=== PATIENT | male | born 1990 | race Caucasian/White ===

== ENCOUNTER 2018-03-12 15:47 | Emergency (ER) | payer MEDICAID ==
[~2018-03-12] VITALS: Ht 180.3 cm; Wt 82.6 kg
[~2018-03-12 15:47] MED LIST: XAN1 PO
[2018-03-12 15:56] VITALS: Ht 180.3 cm; Wt 82.6 kg
[2018-03-12 16:44] LABS: microscopic required? NO
[2018-03-12 16:50] LABS: BASOPHIL % 0.7 % (0-2); PLATELET COUNT 238 x10^3mcL (130-400); RED CELL DISTRIBUTION WIDTH 13.2 % (11.5-14.5)
[2018-03-12 16:51] LABS: UA SPECIFIC GRAVITY 1.015 (1.005-1.035); urine erythrocyte NEGATIVE (NEGATIVE)
[2018-03-12 16:56] LABS: CALCIUM 8.3 mg/dL (8.5-10.1); CARBON DIOXIDE 28.4 mmol/L (21-32); CHLORIDE SERUM 108 mmol/L (98-107); CREATININE SERUM 0.9 mg/dL (0.7-1.3); GFR1 > 60 mL/min; GLUCOSE SERUM 106 mg/dL (74-106); SODIUM SERUM 147 mmol/L (136-145)
[2018-03-12 16:59] LABS: AMPHETAMINE QUAL UR NONE DETECTED (See below)
[2018-03-12 17:03] LABS: ALBUMIN 3.9 g/dL (3.4-5.0); ALKALINE PHOSPHATASE 52 U/L (46-116); ALT/SGPT 16 U/L (16-63); AST/SGOT 10 U/L (15-37); BILIRUBIN TOTAL 0.55 mg/dL (0.20-1.00); TOTAL PROTEIN, SERUM 7.3 g/dL (6.4-8.2)
[2018-03-12] MEDS ORDERED: MIN2 PO (20:05)
[2018-03-12] MEDS ORDERED: DEPAKOTE500 MG PO (20:07)
[2018-03-12] MEDS ORDERED: BUSPIRONE HCL30 MG PO (20:08)
[2018-03-13 14:07] VITALS: BP 119/63
== END 2018-03-13 14:07 ==
LOC: ED 15:47
PROVIDERS: Emergency Medicine
DX: F41.9 Anxiety disorder, unspecified (principal); F32.9 Major depressive disorder, single episode, unspecified; F43.10 Post-traumatic stress disorder, unspecified; F12.980 Cannabis use, unspecified with anxiety disorder; F17.210 Nicotine dependence, cigarettes, uncomplicated; Z71.6 Tobacco abuse counseling; Z88.8 Allergy status to other drugs, medicaments and biological substances; X58.XXXA Exposure to other specified factors, initial encounter; Y93.89 Activity, other specified; Y92.89 Other specified places as the place of occurrence of the external cause; Y99.8 Other external cause status
CPT/HCPCS: 36415; 99406; G0480

== ENCOUNTER 2018-12-05 11:12 | Inpatient (IN) | payer MEDICAID ==
[~2018-12-05] VITALS: Ht 185.4 cm; Wt 70.3 kg
[~2018-12-05 11:12] MED LIST changes: +BUSPIRONE HCL30 MG PO; +DEPAKOTE500 MG PO; +MIN2 PO
[2018-12-05 11:17] VITALS: Ht 185.4 cm; Wt 70.3 kg
[2018-12-05 12:01] LABS: BASOPHIL % 0.4 % (0-2); PLATELET COUNT 257 x10^3mcL (130-400)
[2018-12-05 12:10] LABS: CALCIUM 8.6 mg/dL (8.5-10.1); CARBON DIOXIDE 21.8 mmol/L (21-32); CHLORIDE SERUM 107 mmol/L (98-107); CREATININE SERUM 0.8 mg/dL (0.7-1.3); GFR1 > 60 mL/min; GLUCOSE SERUM 101 mg/dL (74-106); SODIUM SERUM 142 mmol/L (136-145)
[2018-12-05 12:15] LABS: ALKALINE PHOSPHATASE 50 U/L (46-116); ALT/SGPT 16 U/L (16-63); AST/SGOT 11 U/L (15-37); BILIRUBIN TOTAL 0.79 mg/dL (0.20-1.00); TOTAL PROTEIN, SERUM 7.2 g/dL (6.4-8.2)
[2018-12-05 12:16] LABS: AMPHETAMINE QUAL UR NONE DETECTED (See below)
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
--- NOTE | 2018-12-05 12:45 | NUR ---
PT DENIES HI, VISUAL OR AUDIAL HALLUCINATIONS.
--- NOTE | 2018-12-05 12:58 | NUR ---
PT COMPLAINS OF DYSURIA, DR CONTE NOTIFIED. PT IN BATHROOM TO COLLECT URINE SPECIMEN. WAIITTERA FOR ORDERS.
--- NOTE | 2018-12-05 13:45 | NUR ---
PT CURRENTLY SPEAKING WITH [employer].
--- NOTE | 2018-12-05 13:54 | NUR ---
SPOKE TO PSYCHIATRIST DR. GARIBAY. AND IS REQUESTING HOSPITILAZATION FOR A 5150 HOLD. ALSO STATES THAT PT IS WILLING TO GO VOLUNTARILY. CN NOTIFIED, WILL CALL LELA RAZA TO COME AND PUT PT ON HOLD.
--- NOTE | 2018-12-05 14:29 | NUR ---
SANDWICH GIVEN AND ORAL FLUIDS, TOLEARETED WELL.
--- NOTE | 2018-12-05 14:32 | NUR ---
I WAS CALLED TO THE ED TO WRITE A 5150 HOLD FOR THIS PATIENT. I WAS TOLD BY THE Librado MURPHY THAT THE TELEPSYCH MD HAS SUGGESTED THE HOLD AFTER HIS EVALUATION. THE RN NOTES ALSO STATE SUICIDAT IDEATION, NO PLAN, 5150 ADVISED. I SPOKE TO THE PTIENT AT THE [facility]. HE TELLS ME HE LIVES AT [address]. HIS UNKLE (QUYNH WALSH) AND HIS MOTHER, LOVAL TO [facility]. HE STATES HE HAS BEEN ON MANY 5150 HOLDS AND UNDERSTANDS THEM.
--- NOTE | 2018-12-05 14:47 | NUR ---
PT LAYING ON ABDOMEN, IN NAD. EYES CLOSED, AROUSABLE TO VERBAL STIMULI,
--- NOTE | 2018-12-05 15:24 | NUR ---
Received packet via fax. Will begin looking for placement. Will contact with any placement updates
--- NOTE | 2018-12-05 15:49 | NUR ---
Contacted the following facilities regarding placement: [facility]: s/w Liseth, no beds available at this time. Faxed for waitlist. [facility]: s/w Jerson, no beds available at this time. [facility]: Can only admit medi-renate pts when they are under 20 y/o. [facility]: s/w Corrine, states no beds or projected openings, try again tomorrow. [facility]: s/w Ria, states no beds available. [facility]: s/w Amy, states open beds, packet faxed for review. [facility]: s/w Emilie, states no beds. [facility]: No answer, left voice message. Will continue to look for placement. Will contact with any updates.
--- NOTE | 2018-12-05 15:57 | NUR ---
NO ACUTE CHANGES IN CONDITION, PT WITH EYES CLOSED, IN NAD.
--- NOTE | 2018-12-05 18:24 | NUR ---
EMT AT BEDSIDE TO COLLECT ALL CLOTHES AND BELOGNIGS.
--- NOTE | 2018-12-05 18:35 | NUR ---
REMVOED PTS CLOTHES AND BELONGINGS PLACED IN BAG AND PLACED IN SECURED CABINET WITH PT LABEL ON IT.
--- NOTE | 2018-12-05 19:35 | NUR ---
PT LAYING COMFORTABLY IN GURNEY, AWAKE AND ALERT, CALM AND COOPERATIVE, RESP E/U, REPORTS 10/10 HEADACHE PAIN. MD MADE AWARE. PT CONTINUES TO BE IN DIRECT SIGHT OF NURSE'S STATION.
--- NOTE | 2018-12-05 19:40 | NUR ---
CALLED OVER TO PT ROOM, PT STATED HE HAD TOLD THE PREVIOUS NURSE THAT HE WAS HAVING A HEADACHE. PT ALSO INFORMED ME THAT IN ORDER TO HELP WITH HIS HEADACHE, HE WENT TO THE RESTROOM AND "BANGED MY HEAD AGAINST THE WALL AND I DON'T WANT TO HURT MY SELF ANYMORE". EXPLAINED TO THE PT THAT HE NEEDS TO CALL FOR ASSISTANCE WHEN HE NEEDS TO USE THE RESTROOM AND THAT HE CANNOT INJURE HIMSELF. PT GAVE UNDERSTANDING AND AGREED THAT HE WOULD NO LONGER DO ANYTHING TO HURT HIMSELF WHILE IN THE ED. INFORMED PT THAT TYLENOL HAD BEEN ORDER FOR HIM. THEN ASKED PT IF HE HAD BEEN PROVIDED WITH DINNER, PT STATED HE DID NOT GET A DINNER TRAY AND OFFERED HIM SANDWICH. PT AGREED TO SANDWICH AND TYLENOL FOR HEADACHE. PT A&OX4 AT THIS TIME, STUTTERS IN HIS SPEECH, REMAINS COOPERATIVE AT THIS TIME, BUT APPEARS UNEASY AND REPOSITIONG OFTEN TO COMFORT. EDUCATED PT TO USE CALL LIGHT IF HE NEEDED TO USE RESTROOM. PT GAVE UNDERSTANDING.
--- NOTE | 2018-12-05 19:46 | NUR ---
PT MEDICATED PER ORDER. SEE EMAR. PT ALSO PROVIDED WITH SANDWICH AND JUICE.
--- NOTE | 2018-12-05 20:28 | NUR ---
PT REPORTS PAIN IMPROVED TO 2/10 S/P TYLENOL ADMINISTRATION. PT IS AWAKE AND ALERT, RESP E/U. PT PROVIDED WITH JELLO AND CRACKERS PER HIS REQUEST. PT SITTING UP IN HIGH FOWLERS. PT REMAINS CALM AND COOPERATIVE. ASKED PT IF HE CURRENTLY HAD ANY SI, STATES "YES." ASKED HIM IF HE HAD A PLAN, PT STATED "I JUST DON'T WANT TO THINK ABOUT IT."
--- NOTE | 2018-12-05 20:40 | NUR ---
PATIENT IS BACK IN BED, HE HAD GONE TO THE BATHROOM. NO COMPLAINT OF PAIN AT THIS TIME. PATIENT REQUESTED A BLANKET IF THE AMBULANCE IS NOT COMING FOR HIM NON. PATIENT WAS GIVEN BLANKET ANC COMFORT ENSURES. PATIENT IS WATCHING TV.
--- NOTE | 2018-12-05 21:34 | NUR ---
PATIENT AMBULATED TO THE BATHROOM.
--- NOTE | 2018-12-06 00:30 | NUR ---
PATIENT AMBULATED TO THE BATHROOM. REQUESTED SANDWICH AND JUICE ON RETURN TO BED. SANDWICH AND JUICE GIVEN.
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
--- NOTE | 2018-12-06 01:20 | NUR ---
AT PT BEDSIDE. PT REQUESTED MEDICATION AGAIN FOR INFLAMMATION. PT IS CALM AND COOPERATIVE AT THIS TIME, APOLOGETIC AND STATING HE NORMALLY TAKES NAPROXEN AND WOULD APPRECIATE IF HE GOT THE MEDICATION. AWAITING FURTHER ORDERS. PT CONTINUED TO APOLOGIZE FOR HIS BEHAVIOR. INFORMED PT THAT I APPRECIATE THE CLEARER COMMUNICATION AND THAT WE ARE TRYING TO HELP HIM AND WORK WITH HIM. PT GAVE UNDERSTANDING AND RETURNED TO POSITION OF COMFORT.
--- NOTE | 2018-12-06 01:39 | NUR ---
PT MEDICATED PER ORDER. SEE EMAR.
--- NOTE | 2018-12-06 03:02 | NUR ---
PATIENT GOT UP TO THE BATHROOM. AND BACK TO BED.
--- NOTE | 2018-12-06 05:03 | NUR ---
PATIENT WENT TO TE BATHROOM.
--- NOTE | 2018-12-06 05:15 | NUR ---
PATIENT RETURN FROM THE BATHROOM, VITAL SIGNS RE-CHECK.
--- NOTE | 2018-12-06 06:32 | NUR ---
PATIENT IS AWAKE, AND WATCHING TV. NO DISTRESS.
--- NOTE | 2018-12-06 07:18 | NUR ---
REPORT RECEIVED FROM JACQUIE DEGROOT TO ASSUME CARE OF PT. PT AAOX4, CALM/COOPERATIVE, RESP E/U, AMBULATED TO RESTROOM WITH STEADY GAIT, NO ACUTE DISTRESS NOTED AT THIS TIME.
--- NOTE | 2018-12-06 07:39 | NUR ---
PT AMBULATED TO RESTROOM WITH STEADY GAIT.
--- NOTE | 2018-12-06 08:27 | NUR ---
PT AMBULATED TO RESTROOM WITH STEADY GAIT. PT STATED THE FLOOR IS TOO SLIPPERY FOR HIM. PT GIVEN NON-SLIP SOCKS TO USE.
--- NOTE | 2018-12-06 09:35 | NUR ---
PT AMBULATED TO RESTROOM WITH STEADY GAIT.
--- NOTE | 2018-12-06 11:15 | NUR ---
PT UP ASKING NURSES FOR PENCIL AND PAPER. PT WAS TOLD BY ME WE COULD NOT GIVE HIM A PENCIL TO USE BUT I WILL WRITE SOMETHING DOWN FOR HIM IF HE NEEDED. PT LAUGHED AND STATED "IT'S OK I DON'T WANT TO OFFEND YOU WITH MY RAP LYRICS". PT CALM/COOPERATIVE, RESP E/U, AAOX4, NO ACUTE DISTRESS NOTED AT THIS TIME.
--- NOTE | 2018-12-06 14:16 | NUR ---
CALLED TO PT RM, PT STS HE IS FEELING ANXIOUS AND WOULD LIKE SOME MEDICATION FOR THAT. DR. MEJIA MADE AWARE. PT CALM/COOPERATIVE, RESP E/U, NO ACUTE DISTRESS NOTED AT THIS TIME.
--- NOTE | 2018-12-06 14:27 | NUR ---
PT REQUESTED TOOTH BRUSH AND TOOTH PASTE. PT GIVEN ITEMS AND TOLD HE HAS TO BRUSH TEETH IN ROOM WITHIN VIEW OF NURSES STATION. PT WAS COOPERATIVE.
--- NOTE | 2018-12-06 17:20 | NUR ---
PT REEVALUATED FOR SI. PT STS HE NO LONGER WANTS TO HARM HIMSELF. PT STATED "I WANT TO GET HELP MANAGING MY EMOTIONS". PT AAOX4, RESP E/U, CALM/COOPERATIVE, NO ACUTE DISTRESS NOTED AT THIS TIME. PT WITH IN VIEW OF NURSES STATION.
[2018-12-06 18:44] LABS: CHOLESTEROL/HDL RATIO 2.9
--- NOTE | 2018-12-06 19:13 | NUR ---
REPORT GIVEN TO JACQUIE DEGROOT TO ASSUME CARE OF PT.
--- NOTE | 2018-12-06 20:31 | NUR ---
PATIENT IS ADMITTED.REPORT WAS GIVEN TO ESTELLA. PATIENT TRANSPORTED TO ROOM 244B.
[2018-12-06 20:50] VITALS: BP 133/89
--- NOTE | 2018-12-06 20:54 | NUR ---
RECEIVED PT FROM ED VIA TAMIKO. ORIENTED PT TO ROOM AND SURROUNDINGS. IV NOTED TO LAC PATENT AND INTACT. INSTRUCTED PT ON THE USE OF CALL LIGHT FOR ASSISTANCE. ENDORSED PT TO PRIMARY SHANITA SORIA
[2018-12-06 21:02] VITALS: BP 133/89
--- NOTE | 2018-12-06 21:02 | NUR ---
PT REQUESTING TO SHOWER, PAGED DR. SCHWARZ.
--- NOTE | 2018-12-06 23:50 | NUR ---
PT RESTING IN BED. BREATHING E/U. NO S/S ACUTE DISTRESS. 1:1 SITTER AT BEDSIDE TO MAINTAIN SAFETY. CALL LIGHT WITHIN REACH. WILL CONTINUE TO MONITOR.
--- NOTE | 2018-12-07 02:02 | NUR ---
PT C/O "02/19 HEADACHE PAIN AND 11/19 BODY PAIN", NO PRN PAIN MEDS AVAILABLE AT THIS TIME, PAGED DR. SCHWARZ. WAITING FOR CALLBACK.
--- NOTE | 2018-12-07 02:09 | NUR ---
SPOKE TO DR. RODRIGUEZ REGARDING PT REQUEST TO SHOWER AND PAIN MEDICATION. WILL WAIT FOR NEW ORDERS.
--- NOTE | 2018-12-07 02:38 | NUR ---
PT STATED HE WANTED TO LEAVE AMA, INFORMED PT THAT HE IS ON A HOLD. PT REPORTS FEELING ANXIOUS. CURRENTLY AMBULATING AROUND UNIT WITH SITTER.
--- NOTE | 2018-12-07 03:34 | NUR ---
PT LEFT AMA, ESCORTED BY 2 MEDICAL EXAMINER. POLICE INFORMED.
--- NOTE | 2018-12-07 03:57 | NUR ---
POLICE AND STAFF MEMBERS MET PT IN PARKING LOT. PT AGREED TO RETURN TO UNIT AFTER SPEAKING TO POLICE AND STAFF. PT RETURNED TO ROOM WITH 1:1 SITTER. CALM AND COOPERATIVE WITH CARE AT THIS TIME. WILL CONTINUE TO MONITOR.
[2018-12-07 06:59] VITALS: BP 94/51
[2018-12-07 09:06] VITALS: BP 128/78
[2018-12-07 16:06] VITALS: BP 119/69
--- NOTE | 2018-12-07 18:35 | NUR ---
PT TOLERATED TREATMENT WELL DURING THE SHIFT, STILL REFUSING IV ACCESS, PACED WITH NURSE AND DOCK SUPERVISOR AROUND THE UNIT DURING THE DAY, NO NEW EVENTS TO REPORTS, WILL REPORT TO PUBLISHING DIRECTOR NURSE AND EDORSE CARE
[2018-12-07 19:16] VITALS: BP 119/69
--- NOTE | 2018-12-07 19:34 | NUR ---
PT CLEARED TO GO HOME. PT GIVEN DISCHARGE PACKET, DISCHARGE TEACHING PROVIDED, INSTRUCTED TO FOLLOW UP WITH PCP, PT VERBALIZED UNDERSTANDING. ALL BELONGINGS WITH PT. VSS. NO S/S ACUTE DISTRESS. PT DISCHARGED HOME.
== END 2018-12-07 19:34 | disposition home or self-care (01) | DRG 755 ==
LOC: ED 11:12 → MU 12-06 15:50
PROVIDERS: Emergency Medicine; ADMIT General Practice
DX: F43.10 Post-traumatic stress disorder, unspecified (principal); F25.0 Schizoaffective disorder, bipolar type; R45.851 Suicidal ideations; F41.8 Other specified anxiety disorders; F84.0 Autistic disorder; F15.10 Other stimulant abuse, uncomplicated; F12.10 Cannabis abuse, uncomplicated; Z91.5 Personal history of self-harm; Z68.20 Body mass index [BMI] 20.0-20.9, adult
CPT/HCPCS: G0378; G0480; J1885; Q0177